=== PATIENT | female | born 1945 | race Caucasian/White ===

== ENCOUNTER 2023-03-31 10:18 | Emergency (ER) | payer OTHER, MEDICARE ==
[~2023-03-31] VITALS: Ht 152.4 cm; Wt 47.6 kg
[2023-03-31 10:31] VITALS: BP 126/72; TEMP 98.2; O2SAT 97
== END 2023-03-31 12:01 | disposition home or self-care (01) ==
LOC: ER 10:37
DX: S82.092A Other fracture of left patella, initial encounter for closed fracture (principal); W01.0XXA Fall on same level from slipping, tripping and stumbling without subsequent striking against object, initial encounter; Y93.89 Activity, other specified; Y92.89 Other specified places as the place of occurrence of the external cause; Y99.8 Other external cause status
CPT/HCPCS: 73564-TC